=== PATIENT | female | born 2000 | race Caucasian/White ===

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

== ENCOUNTER 2021-09-13 20:56 | Emergency (ER) | payer MEDICARE, OTHER ==
[~2021-09-13] VITALS: Ht 162.6 cm; Wt 98.9 kg
[~2021-09-13 20:56] MED LIST changes: +MACROBID 100 M100 MG PO; +PRAZOSIN HCL1 MG PO; +VITAMIN D250000 UNIT PO
[2021-09-13] MEDS ORDERED: NAPROSYN500 MG PO (21:51)
== END 2021-09-13 22:03 | disposition home or self-care (01) ==
LOC: ED 20:56
DX: M25.642 Stiffness of left hand, not elsewhere classified (principal); J45.909 Unspecified asthma, uncomplicated; Z88.8 Allergy status to other drugs, medicaments and biological substances
CPT/HCPCS: 73130; 96372; 99283-25; J1885

== ENCOUNTER 2021-10-01 02:33 | Emergency (ER) | payer MEDICARE, OTHER ==
[~2021-10-01] VITALS: Ht 162.6 cm; Wt 99.1 kg
[~2021-10-01 02:33] MED LIST changes: +NAPROSYN500 MG PO
--- OUTSIDE RECORDS SUMMARY | 2021-10-01 02:40 | XMS ---
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 - PATIENT DOES SEE DR VIERA AT [facility]. - PATIENT LAST PCP VISIT WAS ON 06/18/18. PCP ADVISED PATIENT TO FOLLOW UP WITH PCP IN REGARDS TO BACK PAIN. E.D. VISIT COUNT (12 MO.) [address] [facility] TOTAL 2 NOTE: Visits indicate total known visits. ED/UCC VISIT TRACKING (12 MO.) 10/01/2021 02:33 [facility] TYPE: Emergency COMPLAINT: - RT SIDE HIP PAIN 09/13/2021 20:57 [facility] TYPE: Emergency COMPLAINT: - LEFT HAND PAIN/NON INJ DIAGNOSES: - Stiffness of left hand, not elsewhere classified - Allergy status to other drugs, medicaments and biological substances - Pain in left finger(s) - Unspecified asthma, uncomplicated INPATIENT VISIT TRACKING (12 MO.) No inpatient visits to display in this time frame [email or web address]
[2021-10-01] MEDS ORDERED: CELEBREX100 MG PO (04:23)
[2021-10-01] MEDS ORDERED: HYDROCODON-ACE1 EA10 PO (04:23)
== END 2021-10-01 04:46 | disposition home or self-care (01) ==
LOC: ED 02:33
DX: S76.011A Strain of muscle, fascia and tendon of right hip, initial encounter (principal); X58.XXXA Exposure to other specified factors, initial encounter; Z88.8 Allergy status to other drugs, medicaments and biological substances
CPT/HCPCS: 36415; 73700; 80053; 84703; 85025; 86140; A9270; J1170; J1885; J3360

== ENCOUNTER 2022-12-07 21:29 | Emergency (ER) | payer MEDICARE, OTHER ==
[~2022-12-07] VITALS: Ht 162.6 cm; Wt 98.9 kg
--- OUTSIDE RECORDS SUMMARY | ~2022-12-07 | XMS | Continuity of Care Document ---
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 [facility] | 25 | mmol/l | (missing) | | | 22:41 | | | | | + + +-------+ + + + | CO2 (ASA) | 2020-02-19 | [facility] | 25 | mmol/l | (missing) | | | 22:41 | | | | | + + +-------+ + + + | LYMPHOCYTES | 2020-02-19 | [facility] | 27 | % | (missing) | | RELATIVE | 22:41 | | | | | | PERCENT | | | | | | + + +-------+ + + + | LYMPHOCYTES | 2020-02-19 | [facility] | 27 | % | (missing) | | RELATIVE | 22:41 | | | | | | PERCENT | | | | | | + + +-------+ + + + | MEAN | 2020-02-19 | [facility] | 27.2 | pg | (missing) | | CORPUSCULAR | 22:41 | | | | | | HEMOGLOBIN | | | | | | + + +-------+ + + + | MEAN | 2020-02-19 | [facility] | 27.2 | pg | (missing) | | CORPUSCULAR | 22:41 | | | | | | HEMOGLOBIN | | | | | | + + +-------+ + + + | GLOBULIN | 2020-02-19 | [facility] | 3.2 | g/dl | (missing) | | | 22:41 | | | | | + + +-------+ + + + | POTASSIUM | 2020-02-19 | [facility] | 3.5 | mmol/l | (missing) | | (ASA) | 22:41 | | | | | + + +-------+ + + + | POTASSIUM | 2020-02-19 | [facility] | 3.5 | mmol/l | (missing) | | (ASA) | 22:41 | | | | | + + +-------+ + + + | PLATELETS | 2020-02-19 | [facility] | 318 | | (missing) | | | 22:41 | | | 10*3/microli | | | | | | | ter | | + + +-------+ + + + | PLATELETS | 2020-02-19 | [facility] | 318 | | (missing) | | | 22:41 | | | 10*3/microli | | | | | | | ter | | + + +-------+ + + + | MEAN | 2020-02-19 | [facility] | 33.4 | g/dl | (missing) | | CORPUSCULAR | 22:41 | | | | | | HEMOGLOBIN | | | | | | | CONC | | | | | | + + +-------+ + + + | MEAN | 2020-02-19 | [facility] | 33.4 | g/dl | (missing) | | CORPUSCULAR | 22:41 | | | | | | HEMOGLOBIN | | | | | | | CONC | | | | | | + + +-------+ + + + | HEMATOCRIT | 2020-02-19 | [facility] | 35.1 | % | (missing) | | | 22:41 | | | | | + + +-------+ + + + | HEMATOCRIT | 2020-02-19 | [facility] | 35.1 | % | (missing) | | | 22:41 | | | | | + + +-------+ + + + | ALBUMIN | 2020-02-19 | [facility] | 4.0 | g/dl | (missing) | | | 22:41 | | | | | + + +-------+ + + + | ALBUMIN | 2020-02-19 | [facility] | 4.0 | g/dl | (missing) | | | 22:41 | | | | | + + +-------+ + + + | RED BLOOD | 2020-02-19 | [facility] | 4.30 | | (missing) | | CELL COUNT | 22:41 | | | 10*6/microli | | | | | | | ter | | + + +-------+ + + + | RED BLOOD | 2020-02-19 | [facility] | 4.30 | | (missing) | | CELL COUNT | 22:41 | | | 10*6/microli | | | | | | | ter | | + + +-------+ + + + | NEUTROPHILS | 2020-02-19 | [facility] | 4.8 | | (missing) | | ABSOLUTE | 22:41 | | | 10*3/microli | | | COUNT | | | | ter | | + + +-------+ + + + | NEUTROPHILS | 2020-02-19 | [facility] | 4.8 | | (missing) | | ABSOLUTE | 22:41 | | | 10*3/microli | | | COUNT | | | | ter | | + + +-------+ + + + | NEUTROPHILS | 2020-02-19 | [facility] | 64 | % | (missing) | | RELATIVE | 22:41 | | | | | | PERCENT | | | | | | + + +-------+ + + + | NEUTROPHILS | 2020-02-19 | [facility] | 64 | % | (missing) | | RELATIVE | 22:41 | | | | | | PERCENT | | | | | | + + +-------+ + + + | MONOCYTES | 2020-02-19 | [facility] | 7 | % | (missing) | | RELATIVE | 22:41 | | | | | | PERCENT | | | | | | + + +-------+ + + + | MONOCYTES | 2020-02-19 | [facility] | 7 | % | (missing) | | RELATIVE | 22:41 | | | | | | PERCENT | | | | | | + + +-------+ + + + | PROTEIN | 2020-02-19 | [facility] | 7.2 | g/dl | (missing) | | TOTAL | 22:41 | | | | | + + +-------+ + + + | PROTEIN | 2020-02-19 | [facility] | 7.2 | g/dl | (missing) | | TOTAL | 22:41 | | | | | + + +-------+ + + + | MEAN | 2020-02-19 | [facility] | 7.4 | fl | (missing) | | PLATELET | 22:41 | | | | | | VOLUME | | | | | | + + +-------+ + + + | MEAN | 2020-02-19 | [facility] | 7.4 | fl | (missing) | | PLATELET | 22:41 | | | | | | VOLUME | | | | | | + + +-------+ + + + | WHITE BLOOD | 2020-02-19 | [facility] | 7.6 | | (missing) | | CELL COUNT | 22:41 | | | 10*3/microli | | | | | | | ter | | + + +-------+ + + + | WHITE BLOOD | 2020-02-19 | [facility] | 7.6 | | (missing) | | CELL COUNT | 22:41 | | | 10*3/microli | | | | | | | ter | | + + +-------+ + + + | ANION GAP | 2020-02-19 | [facility] | 8 | mmol/l | (missing) | | (ASA) | 22:41 | | | | | + + +-------+ + + + | ANION GAP | 2020-02-19 | [facility] | 8 | mmol/l | (missing) | | (ASA) | 22:41 | | | | | + + +-------+ + + + | CALCIUM | 2020-02-19 | [facility] | 8.9 | mg/dl | (missing) | | | 22:41 | | | | | + + +-------+ + + + | CALCIUM | 2020-02-19 | [facility] | 8.9 | mg/dl | (missing) | | | 22:41 | | | | | + + +-------+ + + + | MEAN | 2020-02-19 | [facility] | 81.6 | fl | (missing) | | CORPUSCULAR | 22:41 | | | | | | VOLUME | | | | | | + + +-------+ + + + | MEAN | 2020-02-19 | [facility] | 81.6 | fl | (missing) | | CORPUSCULAR | 22:41 | | | | | | VOLUME | | | | | | + + +-------+ + + + | | 2020-02-19 | [facility] | Automated | (missing) | (missing) | | DIFFERENTIAL | 22:41 | | Differential | | | | TYPE | | | | | | + + +-------+ + + + | HCG | 2020-02-19 | [facility] | Negative | (missing) | (missing) | | QUALITATIVE | 22:41 | | | | | + + +-------+ + + + | HCG | 2020-02-19 | [facility] | Negative | (missing) | (missing) | | QUALITATIVE | 22:41 | | | | | + + +-------+ + + + | SARS-COV-2 | 2020-02-19 | [facility] | Presumptive | (missing) | (missing) | | (COVID-19) | 22:41 | | Negative | | | | BY NAAT | | | | | | | (ASA) | | | | | | + + +-------+ + + + | SARS-COV-2 | 2020-02-19 | [facility] | Presumptive | (missing) | (missing) | | (COVID-19) | 22:41 | | Negative | | | | BY NAAT | | | | | | | (ASA) | | | | | | + + +-------+ + + + | SO COVID 19 | 2020-02-19 | [facility] | [facility], | (missing) | (missing) | | RESULTING | 22:41 | | [address] | | | | AGENCY | | | [place], | | | | | | | [place] | | | | | | | [address] | | | + + +-------+ + + + + + | Result panel 4 | + + + + +-------+--------+ + + | THYROID | 2020-02-19 | [facility] | 2.17 | uiu/ml | (missing) | | STIMULATING | 23:15 | | | | | | HORMONE | | | | | | + + +-------+--------+ + + | THYROID | 2020-02-19 | [facility] | 2.17 | uiu/ml | (missing) | | STIMULATING | 23:15 | | | | | | HORMONE | | | | | | + + +-------+--------+ + + + + | Result panel 5 | + + + + +-------+ + + + | TREPONEMA | 2020-02-29 | [facility] | <0.1 | iv | (missing) | | INDEX VALUE | 09:00 | | | | | + + +-------+ + + + | HEPATITIS B | 2020-02-29 | [facility] | Immune | (missing) | (missing) | | SURFACE | 09:00 | | | | | | ANTIBODY | | | | | | | INTERPRETATI | | | | | | | ON | | | | | | + + +-------+ + + + | HEPATITIS B | 2020-02-29 | [facility] | Immune | (missing) | (missing) | | SURFACE | 09:00 | | | | | | ANTIBODY | | | | | | | INTERPRETATI | | | | | | | ON | | | | | | + + +-------+ + + + | HEPATITIS B | 2020-02-29 | [facility] | Negative | (missing) | (missing) | | CORE IGM | 09:00 | | | | | | ANTIBODY | | | | | | | INTERPRETATI | | | | | | | ON | | | | | | + + +-------+ + + + | HEPATITIS B | 2020-02-29 | [facility] | Negative | (missing) | (missing) | | SURFACE | 09:00 | | | | | | ANTIGEN | | | | | | | INTERPRETATI | | | | | | | ON | | | | | | + + +-------+ + + + | SO HERPES | 2020-02-29 | [facility] | Negative | (missing) | (missing) | | SIMPLEX | 09:00 | | | | | | VIRUS 1 IGG | | | | | | + + +-------+ + + + | TREPONEMA | 2020-02-29 | [facility] | Negative | (missing) | (missing) | | ANTIBODY | 09:00 | | | | | + + +-------+ + + + | HEPATITIS A | 2020-02-29 | [facility] | Negative | (missing) | (missing) | | IGM | 09:00 | | | | | | ANTIBODY | | | | | | | INTERPRETATI | | | | | | | ON | | | | | | + + +-------+ + + + | HEPATITIS C | 2020-02-29 | [facility] | Negative | (missing) | (missing) | | ANTIBODY | 09:00 | | | | | | INTERPRETATI | | | | | | | ON | | | | | | + + +-------+ + + + | HEPATITIS B | 2020-02-29 | [facility] | Negative | (missing) | (missing) | | CORE IGM | 09:00 | | | | | | ANTIBODY | | | | | | | INTERPRETATI | | | | | | | ON | | | | | | + + +-------+ + + + | SO HERPES | 2020-02-29 | [facility] | Negative | (missing) | (missing) | | SIMPLEX | 09:00 | | | | | | VIRUS 2 IGG | | | | | | + + +-------+ + + + | SO HERPES | 2020-02-29 | [facility] | Negative | (missing) | (missing) | | SIMPLEX | 09:00 | | | | | | VIRUS 1 IGG | | | | | | + + +-------+ + + + | HEPATITIS B | 2020-02-29 | [facility] | Negative | (missing) | (missing) | | SURFACE | 09:00 | | | | | | ANTIGEN | | | | | | | INTERPRETATI | | | | | | | ON | | | | | | + + +-------+ + + + | HEPATITIS C | 2020-02-29 | [facility] | Negative | (missing) | (missing) | | ANTIBODY | 09:00 | | | | | | INTERPRETATI | | | | | | | ON | | | | | | + + +-------+ + + + | HEPATITIS A | 2020-02-29 | [facility] | Negative | (missing) | (missing) | | IGM | 09:00 | | | | | | ANTIBODY | | | | | | | INTERPRETATI | | | | | | | ON | | | | | | + + +-------+ + + + | TREPONEMA | 2020-02-29 | [facility] | Negative | (missing) | (missing) | | ANTIBODY | 09:00 | | | | | + + +-------+ + + + | SO HERPES | 2020-02-29 | [facility] | Negative | (missing) | (missing) | | SIMPLEX | 09:00 | | | | | | VIRUS 2 IGG | | | | | | + + +-------+ + + + | HIV1/HIV2 | 2020-02-29 | [facility] | Non | (missing) | (missing) | | ANTIBODY/ANT | 09:00 | | Reactive | | | | IGEN SCREEN | | | | | | + + +-------+ + + + | HIV1/HIV2 | 2020-02-29 | [facility] | Non | (missing) | (missing) | | ANTIBODY/ANT | 09:00 | | Reactive | | | | IGEN SCREEN | | | | | | + + +-------+ + + + + + | Result panel 6 | + + + + +-------+ + + + | SARS-COV-2 | 2020-04-03 | [facility] | Detected | (missing) | (missing) | | (COVID-19) | 22:34 | | | | | | BY NAAT | | | | | | | (ASA) | | | | | | + + +-------+ + + + | SARS-COV-2 | 2020-04-03 | [facility] | Detected | (missing) | (missing) | | (COVID-19) | 22:34 | | | | | | BY NAAT | | | | | | | (ASA) | | | | | | + + +-------+ + + + | SO COVID 19 | 2020-04-03 | [facility] | [facility], | (missing) | (missing) | | RESULTING | 22:34 | | [address] | | | | AGENCY | | | [place], | | | | | | | [place], | | | | | | | [place] [address] | | | + + +-------+ + + + + + | Result panel 7 | + + + + +-------+------+---------+ + | SO VITAMIN | 2020-05-08 | [facility] | 68 | pg/ml | (missing) | | D | 17:08:13 | | | | | | 1,25-DIHYDRO | | | | | | | XY | | | | | | + + +-------+------+---------+ + | SO VITAMIN | 2020-05-08 | [facility] | 68 | pg/ml | (missing) | | D | 17:08:13 | | | | | | 1,25-DIHYDRO | | | | | | | XY | | | | | | + + +-------+------+---------+ + + + | Result panel 8 | + + + + +-------+-------+---------+ + | ESTIMATED | 2020-05-08 | [facility] | 126 | mg/dl | (missing) | | AVERAGE | 17:08:14 | | | | | | GLUCOSE | | | | | | + + +-------+-------+---------+ + | | 2020-05-08 | [facility] | 6.0 | % | (missing) | | GLYCOHEMOGLO | 17:08:14 | | | | | | BIN (A1C) | | | | | | + + +-------+-------+---------+ + | | 2020-05-08 | [facility] | 6.0 | % | (missing) | | GLYCOHEMOGLO | 17:08:14 | | | | | | BIN (A1C) | | | | | | + + +-------+-------+---------+ + + + | Result panel 9 | + + + + +-------+ + + + | | 2020-08-03 | [facility] | (missing) | (missing) | (missing) | | (unavailable | 19:11:14 | | | | | | ) | | | | | | + + +-------+ + + + | | 2020-08-03 | [facility] | . | (missing) | (missing) | | (unavailable | 19:11:14 | | | | | | ) | | | | | | + + +-------+ + + + | | 2020-08-03 | [facility] | 1. No | (missing) | (missing) | | (unavailable | 19:11:14 | | suspicious | | | | ) | | | right knee | | | | | | | x-ray | | | | | | | findings. | | | + + +-------+ + + + | | 2020-08-03 | [facility] | ADDITIONAL | (missing) | (missing) | | (unavailable | 19:11:14 | | CLINICAL | | | | ) | | | HISTORY: | | | | | | | None. | | | + + +-------+ + + + | | 2020-08-03 | [facility] | COMPARISON: | (missing) | (missing) | | (unavailable | 19:11:14 | | None | | | | ) | | | | | | + + +-------+ + + + | | 2020-08-03 | [facility] | | (missing) | (missing) | | (unavailable | 19:11:14 | | Electronical | | | | ) | | | ly Signed | | | | | | | by: Jessee Underwood | | | | | | | MD Camila on | | | | | | | 08/03/2020 | | | | | | | 7:14 PM | | | + + +-------+ + + + | | 2020-08-03 | [facility] | FINDINGS: | (missing) | (missing) | | (unavailable | 19:11:14 | | There is no | | | | ) | | | fracture or | | | | | | | subluxation. | | | | | | | No | | | | | | | periosteal | | | | | | | reaction is | | | + + +-------+ + + + | | 2020-08-03 | [facility] | IMPRESSION: | (missing) | (missing) | | (unavailable | 19:11:14 | | | | | | ) | | | | | | + + +-------+ + + + | | 2020-08-03 | [facility] | PROVIDED | (missing) | (missing) | | (unavailable | 19:11:14 | | CLINICAL | | | | ) | | | INDICATIONS: | | | | | | | right knee | | | | | | | painPain in | | | | | | | right knee | | | + + +-------+ + + + | | 2020-08-03 | [facility] | TECHNIQUE: | (missing) | (missing) | | (unavailable | 19:11:14 | | Multiple | | | | ) | | | x-rays of | | | | | | | the right | | | | | | | knee | | | | | | | obtained. | | | + + +-------+ + + + | | 2020-08-03 | [facility] | XR KNEE | (missing) | (missing) | | (unavailable | 19:11:14 | | RIGHT AP | | | | ) | | | LATERAL AND | | | | | | | AXIAL | | | | | | | 08/03/2020 | | | | | | | 7:11 PM | | | + + +-------+ + + + | | 2020-08-03 | [facility] | present. | (missing) | (missing) | | (unavailable | 19:11:14 | | The soft | | | | ) | | | tissues are | | | | | | | large. | | | + + +-------+ + + + + + | Result panel 10 | + + + + + +-------+ + + | | 2021-10-01 | [facility] | 9.0 | (missing) | (missing) | | (unavailable | 02:52 | [facility] | | | | + + + +-------+ + + + + | Result panel 11 | + + + + + +--------+ + + | | 2021-10-01 | [facility] | 4.20 | (missing) | (missing) | | (unavailable | 02:52 | [facility] | | | | + + + +--------+ + + + + | Result panel 12 | + + + + + +--------+ + + | | 2021-10-01 | [facility] | 12.2 | (missing) | (missing) | | (unavailable | 02:52 | [facility] | | | | + + + +--------+ + + + + | Result panel 13 | + + + + + +--------+ + + | | 2021-10-01 | [facility] | 37.2 | (missing) | (missing) | | (unavailable | 02:52 | [facility] | | | | + + + +--------+ + + + + | Result panel 14 | + + + + + +--------+ + + | | 2021-10-01 | [facility] | 88.5 | (missing) | (missing) | | (unavailable | 02:52 | [facility] | | | | + + + +--------+ + + + + | Result panel 15 | + + + + + +--------+ + + | | 2021-10-01 | [facility] | 29.0 | (missing) | (missing) | | (unavailable | 02:52 | [facility] | | | | + + + +--------+ + + + + | Result panel 16 | + + + + + +--------+ + + | | 2021-10-01 | [facility] | 32.7 | (missing) | (missing) | | (unavailable | 02:52 | [facility] | | | | + + + +--------+ + + + + | Result panel 17 | + + + + + +--------+ + + | | 2021-10-01 | [facility] | 15.2 | (missing) | (missing) | | (unavailable | 02:52 | [facility] | | | | + + + +--------+ + + + + | Result panel 18 | + + + + + +-------+ + + | | 2021-10-01 | [facility] | 341 | (missing) | (missing) | | (unavailable | 02:52 | [facility] | | | | + + + +-------+ + + + + | Result panel 19 | + + + + + +--------+ + + | | 2021-10-01 | [facility] | 62.2 | (missing) | (missing) | | (unavailable | 02:52 | [facility] | | | | + + + +--------+ + + + + | Result panel 20 | + + + + + +--------+ + + | | 2021-10-01 | [facility] | 28.5 | (missing) | (missing) | | (unavailable | 02:52 | [facility] | | | | + + + +--------+ + + + + | Result panel 21 | + + + + + +-------+ + + | | 2021-10-01 | [facility] | 7.7 | (missing) | (missing) | | (unavailable | 02:52 | [facility] | | | | + + + +-------+ + + + + | Result panel 22 | + + + + + +-------+ + + | | 2021-10-01 | [facility] | 0.7 | (missing) | (missing) | | (unavailable | 02:52 | [facility] | | | | + + + +-------+ + + + + | Result panel 23 | + + + + + +-------+ + + | | 2021-10-01 | [facility] | 0.9 | (missing) | (missing) | | (unavailable | 02:52 | [facility] | | | | + + + +-------+ + + + + | Result panel 24 | + + + + + +------+---------+ + | | 2021-10-01 | [facility] | 99 | mg/dL | (missing) | | (unavailable | 02:52 | [facility] | | | | + + + +------+---------+ + + + | Result panel 25 | + + + + + +------+---------+ + | | 2021-10-01 | [facility] | 15 | mg/dL | (missing) | | (unavailable | 02:52 | [facility] | | | | + + + +------+---------+ + + + | Result panel 26 | + + + + + +--------+---------+ + | | 2021-10-01 | [facility] | 0.99 | mg/dL | (missing) | | (unavailable | 02:52 | [facility] | | | | + + + +--------+---------+ + + + | Result panel 27 | + + + + + +------+ + + | | 2021-10-01 | [facility] | 83 | (missing) | (missing) | | (unavailable | 02:52 | [facility] | | | | + + + +------+ + + + + | Result panel 28 | + + + + + +---------+ + + | | 2021-10-01 | [facility] | 15.15 | (missing) | (missing) | | (unavailable | 02:52 | [facility] | | | | + + + +---------+ + + + + | Result panel 29 | + + + + + +-------+ + + | | 2021-10-01 | [facility] | 139 | (missing) | (missing) | | (unavailable | 02:52 | [facility] | | | | + + + +-------+ + + + + | Result panel 30 | + + + + + +-------+ + + | | 2021-10-01 | [facility] | 3.6 | (missing) | (missing) | | (unavailable | 02:52 | [facility] | | | | + + + +-------+ + + + + | Result panel 31 | + + + + + +-------+ + + | | 2021-10-01 | [facility] | 103 | (missing) | (missing) | | (unavailable | 02:52 | [facility] | | | | + + + +-------+ + + + + | Result panel 32 | + + + + + +------+ + + | | 2021-10-01 | [facility] | 23 | (missing) | (missing) | | (unavailable | 02:52 | [facility] | | | | + + + +------+ + + + + | Result panel 33 | + + + + + +--------+ + + | | 2021-10-01 | [facility] | 16.6 | (missing) | (missing) | | (unavailable | 02:52 | [facility] | | | | + + + +--------+ + + + + | Result panel 34 | + + + + + +-------+---------+ + | | 2021-10-01 | [facility] | 8.8 | mg/dL | (missing) | | (unavailable | 02:52 | [facility] | | | | + + + +-------+---------+ + + + | Result panel 35 | + + + + + +-------+ + + | | 2021-10-01 | [facility] | 7.4 | (missing) | (missing) | | (unavailable | 02:52 | [facility] | | | | + + + +-------+ + + + + | Result panel 36 | + + + + + +-------+ + + | | 2021-10-01 | [facility] | 3.5 | (missing) | (missing) | | (unavailable | 02:52 | [facility] | | | | + + + +-------+ + + + + | Result panel 37 | + + + + + +-------+ + + | | 2021-10-01 | [facility] | 3.9 | (missing) | (missing) | | (unavailable | 02:52 | [facility] | | | | + + + +-------+ + + + + | Result panel 38 | + + + + + +--------+ + + | | 2021-10-01 | [facility] | 0.90 | (missing) | (missing) | | (unavailable | 02:52 | [facility] | | | | + + + +--------+ + + + + | Result panel 39 | + + + + + +-------+ + + | | 2021-10-01 | [facility] | 0.3 | (missing) | (missing) | | (unavailable | 02:52 | [facility] | | | | + + + +-------+ + + + + | Result panel 40 | + + + + + +------+ + + | | 2021-10-01 | [facility] | 12 | (missing) | (missing) | | (unavailable | 02:52 | [facility] | | | | + + + +------+ + + + + | Result panel 41 | + + + + + +------+ + + | | 2021-10-01 | [facility] | 20 | (missing) | (missing) | | (unavailable | 02:52 | [facility] | | | | + + + +------+ + + + + | Result panel 42 | + + + + + +------+ + + | | 2021-10-01 | [facility] | 70 | (missing) | (missing) | | (unavailable | 02:52 | [facility] | | | | + + + +------+ + + + + | Result panel 43 | + + + + + + + + + | | 2021-10-01 | [facility] | NEGATIVE | (missing) | (missing) | | (unavailable | 02:52 | [facility] | | | | + + + + + + + + + | Result panel 44 | + + + + + + + + + | | 2021-10-01 | [facility] | <0.2 mg/dL | (missing) | (missing) | | (unavailable | 02:52 | [facility] | | | | + + + + + + + + + | Result panel 45 | + + + + + + + + + | | 2022-09-21 | [facility] | YELLOW | (missing) | (missing) | | (unavailable | 22:35:07 | [facility] | | | | + + + + + + + + + | Result panel 46 | + + + + + +---------+ + + | | 2022-09-21 | [facility] | CLEAR | (missing) | (missing) | | (unavailable | 22:35:07 | [facility] | | | | + + + +---------+ + + + + | Result panel 47 | + + + + + + + + + | | 2022-09-21 | [facility] | NEGATIVE | (missing) | (missing) | | (unavailable | 22:35:07 | [facility] | | | | + + + + + + + + + | Result panel 48 | + + + + + + + + + | | 2022-09-21 | [facility] | NEGATIVE | (missing) | (missing) | | (unavailable | 22:35:07 | [facility] | | | | + + + + + + + + + | Result panel 49 | + + + + + +---------+ + + | | 2022-09-21 | [facility] | TRACE | (missing) | (missing) | | (unavailable | 22:35:07 | [facility] | | | | + + + +---------+ + + + + | Result panel 50 | + + + + + +---------+ + + | | 2022-09-21 | [facility] | 1.025 | (missing) | (missing) | | (unavailable | 22:35:07 | [facility] | | | | + + + +---------+ + + + + | Result panel 51 | + + + + + + + + + | | 2022-09-21 | [facility] | NEGATIVE | (missing) | (missing) | | (unavailable | 22:35:07 | [facility] | | | | + + + + + + + + + | Result panel 52 | + + + + + +-------+ + + | | 2022-09-21 | [facility] | 6.0 | (missing) | (missing) | | (unavailable | 22:35:07 | [facility] | | | | + + + +-------+ + + + + | Result panel 53 | + + + + + + + + + | | 2022-09-21 | [facility] [facility] | NEGATIVE | (missing) | (missing) | | (unavailable | 22:35:07 | [facility] | | | | + + + + + + + + + | Result panel 54 | + + + + + + + + + | | 2022-09-21 | [facility] | NORMAL | (missing) | (missing) | | (unavailable | 22:35:07 | [facility] | | | | + + + + + + + + + | Result panel 55 | + + + + + + + + + | | 2022-09-21 | [facility] | NEGATIVE | (missing) | (missing) | | (unavailable | 22:35:07 [facility] | | | | + + + + + + + + + | Result panel 56 | + + + + + + + + + | | 2022-09-21 | [facility] | NEGATIVE | (missing) | (missing) | | (unavailable | 22:35:07 [facility] | | | | + + + + + + + + + | Result panel 57 | + + + + + +-------+ + + | | 2022-09-21 | [facility] | 9.6 | (missing) | (missing) | | (unavailable | 22:40:07 [facility] | | | | + + + +-------+ + + + + | Result panel 58 | + + + + + +--------+ + + | | 2022-09-21 | [facility] | 73.0 | (missing) | (missing) | | (unavailable | 22:40:07 [facility] | | | + + + +--------+ + + + + | Result panel 59 | + + + + + +--------+ + + | | 2022-09-21 | [facility] | 19.2 | (missing) | (missing) | | (unavailable | 22:40:07 [facility] | | | + + + +--------+ + + + + | Result panel 60 | + + + + + +-------+ + + | | 2022-09-21 | [facility] | 4.1 | (missing) | (missing) | | (unavailable | 22:40:07 [facility] | | | | + + + +-------+ + + + + | Result panel 61 | + + + + + +-------+ + + | | 2022-09-21 | [facility] | 1.6 | (missing) | (missing) | | (unavailable | 22:40:07 [facility] | | | | + + + +-------+ + + + + | Result panel 62 | + + + + + +-------+ + + | | 2022-09-21 | [facility] | 2.1 | (missing) | (missing) | | (unavailable | 22:40:07 [facility] | | | | + + + +-------+ + + + + | Result panel 63 | + + + + + +--------+ + + | | 2022-09-21 | [facility] | 4.39 | (missing) | (missing) | | (unavailable | 22:40:07 [facility] | | | | + + + +--------+ + + + + | Result panel 64 | + + + + + +------+---------+ + | | 2022-09-21 | [facility] | 98 | mg/dL | (missing) | | (unavailable | 22:40:07 [facility] | | | | + + + +------+---------+ + + + | Result panel 65 | + + + + + +-----+---------+ + | | 2022-09-21 | [facility] | 8 | mg/dL | (missing) | | (unavailable | :07 | [facility] | | | | + + + +-----+---------+ + + + | Result panel 66 | + + + + + +--------+---------+ + | | 2022-09-21 | [facility] | 0.81 | mg/dL | (missing) | | (unavailable | 22:40:07 [facility] | | | | + + + +--------+---------+ + + + | Result panel 67 | + + + + + +--------+ + + | | 2022-09-21 | [facility] | 13.0 | (missing) | (missing) | | (unavailable | 22:40:07 [facility] | | | | + + + +--------+ + + + + | Result panel 68 | + + + + + +-------+ + + | | 2022-09-21 | [facility] | 105 | (missing) | (missing) | | (unavailable | 22:40:07 [facility] | | | | + + + +-------+ + + + + | Result panel 69 | + + + + + +--------+ + + | | 2022-09-21 | [facility] | 9.87 | (missing) | (missing) | | (unavailable | 22:40:07 [facility] | | | | + + + +--------+ + + + + | Result panel 70 | + + + + + +-------+ + + | | 2022-09-21 | [facility] | 137 | (missing) | (missing) | | (unavailable | 22:40:07 [facility] | | | | + + + +-------+ + + + + | Result panel 71 | + + + + + +-------+ + + | | 2022-09-21 | [facility] | 3.6 | (missing) | (missing) | | (unavailable | 22:40:07 [facility] | | | | + + + +-------+ + + + + | Result panel 72 | + + + + + +-------+ + + | | 2022-09-21 | [facility] | 103 | (missing) | (missing) | | (unavailable | 22:40:07 | [facility] | | | | + + + +-------+ + + + + | Result panel 73 | + + + + + +------+ + + | | 2022-09-21 | [facility] | 23 | (missing) | (missing) | | (unavailable | 22:40:07 [facility] | | | | + + + +------+ + + + + | Result panel 74 | + + + + + +--------+ + + | | 2022-09-21 | [facility] | 14.6 | (missing) | (missing) | | (unavailable | 22:40:07 [facility] | | | | + + + +--------+ + + + + | Result panel 75 | + + + + + +-------+---------+ + | | 2022-09-21 | [facility] | 8.5 | mg/dL | (missing) | | (unavailable | 22:40:07 [facility] | | | | + + + +-------+---------+ + + + | Result panel 76 | + + + + + +-------+ + + | | 2022-09-21 | [facility] | 7.6 | (missing) | (missing) | | (unavailable | 22:40:07 [facility] | | | | + + + +-------+ + + + + | Result panel 77 | + + + + + +-------+ + + | | 2022-09-21 | [facility] | 3.7 | (missing) | (missing) | | (unavailable | 22:40:07 [facility] | | | | + + + +-------+ + + + + | Result panel 78 | + + + + + +--------+ + + | | 2022-09-21 | [facility] | 39.9 | (missing) | (missing) | | (unavailable | 22:40:07 [facility] | | | | + + + +--------+ + + + + | Result panel 79 | + + + + + +-------+ + + | | 2022-09-21 | [facility] | 3.9 | (missing) | (missing) | | (unavailable | 22:40:07 [facility] | | | | + + + +-------+ + + + + | Result panel 80 | + + + + + +--------+ + + | | 2022-09-21 | [facility] | 0.95 | (missing) | (missing) | | (unavailable | 22:40:07 [facility] | | | | + + + +--------+ + + + + | Result panel 81 | + + + + + +-------+ + + | | 2022-09-21 | [facility] | 0.4 | (missing) | (missing) | | (unavailable | :40:07 | [facility] | | | | + + + +-------+ + + + + | Result panel 82 | + + + + + +------+ + + | | 2022-09-21 | [facility] | 11 | (missing) | (missing) | | (unavailable | 22:40:07 [facility] | | | | + + + +------+ + + + + | Result panel 83 | + + + + + +------+ + + | | 2022-09-21 | [facility] | 17 | (missing) | (missing) | | (unavailable | 22:40:07 [facility] | | | | + + + +------+ + + + + | Result panel 84 | + + + + + +------+ + + | | 2022-09-21 | [facility] | 78 | (missing) | (missing) | | (unavailable | 22:40:07 [facility] | | | | + + + +------+ + + + + | Result panel 85 | + + + + + +-------+ + + | | 2022-09-21 | [facility] | 283 | (missing) | (missing) | | (unavailable | 22:40:07 | [facility] | | | | + + + +-------+ + + + + | Result panel 86 | + + + + + + + + + | | 2022-09-21 | [facility] | NEGATIVE | (missing) | (missing) | | (unavailable | 22:40:07 [facility] | | | | + + + + + + + + + | Result panel 87 | + + + + + +--------+ + + | | 2022-09-21 | [facility] | 90.8 | (missing) | (missing) | | (unavailable | 22:40:07 [facility] | | | | + + + +--------+ + + + + | Result panel 88 | + + + + + +--------+ + + | | 2022-09-21 | [facility] | 29.5 | (missing) | (missing) | | (unavailable | 22:40:07 [facility] | | | | + + + +--------+ + + + + | Result panel 89 | + + + + + +--------+ + + | | 2022-09-21 | [facility] | 32.5 | (missing) | (missing) | | (unavailable | 22:40:07 [facility] | | | | + + + +--------+ + + + + | Result panel 90 | + + + + + +--------+ + + | | 2022-09-21 | [facility] | 14.3 | (missing) | (missing) | | (unavailable | 22:40:07 | [facility] | | | | + + + +--------+ + + + + | Result panel 91 | + + + + + +-------+ + + | | 2022-09-21 | [facility] | 369 | (missing) | (missing) | | (unavailable | 22:40:07 | [facility] | | | | + + + +-------+ + + + + | Serum or plasma alanine aminotransferase measurement (enzymatic activity/volume) | + + + + + +------+ + + | Serum or | 2022-09-21 | [facility] | 17 | (missing) | (missing) | | plasma | 22:40 | [facility] | | | | | alanine | | [facility] | | | | | aminotransfe | | | | | | | rase | | | | | | | measurement | | | | | | | (enzymatic | | | | | | | activity/vol | | | | | | | ume) | | | | | | + + + +------+ + + + + | Serum or plasma albumin measurement (mass/volume) | + + + + + +-------+ + + | Serum or | 2022-09-21 | [facility] | 3.7 | (missing) | (missing) | | plasma | 22:40 | [facility] | | | | albumin | | [facility] | | | | | measurement | | | | | | | (mass/volume | | | | | | | ) | | | | | | + + + +-------+ + + + + | Serum or plasma albumin/globulin mass ratio | + + + + + +--------+ + + | Serum or | 2022-09-21 | [facility] | 0.95 | (missing) | (missing) | | plasma | 22:40 | [facility] | | | | | albumin/glob | | [facility] | | | | | ulin mass | | | | | | | ratio | | | | | | + + + +--------+ + + + + | Serum or plasma calcium measurement (mass/volume) | + + + + + +-------+ + + | Serum or | 2022-09-21 | [facility] | 8.5 | (missing) | (missing) | | plasma | 22:40 | [facility] | | | | | calcium | | [facility] | | | | | measurement | | | | | | | (mass/volume | | | | | | | ) | | | | | | + + + +-------+ + + + + | Serum or plasma anion gap 4 | + + + + + +--------+ + + | Serum or | 2022-09-21 | [facility] | 14.6 | (missing) | (missing) | | plasma anion | 22:40 | [facility] | | | | | gap 4 | | [facility] | | | | + + + +--------+ + + + + | Serum or plasma aspartate aminotransferase measurement (enzymatic activity/volume) | + + + + + +------+ + + | Serum or | 2022-09-21 | [facility] | 11 | (missing) | (missing) | | plasma | 22:40 | [facility] | | | | | aspartate | | [facility] | | | | | aminotransfe | | | | | | | rase | | | | | | | measurement | | | | | | | (enzymatic | | | | | | | activity/vol | | | | | | | ume) | | | | | | + + + +------+ + + + + | Character of Urine | + + + + + +---------+ + + | Character | 2022-09-21 | [facility] | CLEAR | (missing) | (missing) | | of Urine | 22:35 | [facility] | | | | + + + +---------+ + + + + | Serum or plasma total bilirubin measurement (mass/volume) | + + + + + +-------+ + + | Serum or | 2022-09-21 | [facility] | 0.4 | (missing) | (missing) | | plasma total | 22:40 | [facility] | | | | | bilirubin | | [facility] | | | | | measurement | | | | | | | (mass/volume | | | | | | | ) | | | | | | + + + +-------+ + + + + | Serum or plasma carbon dioxide, total measurement (moles/volume) | + + + + + +------+ + + | Serum or | 2022-09-21 | [facility] | 23 | (missing) | (missing) | | plasma | 22:40 | [facility] | | | | | carbon | | [facility] | | | | | dioxide, | | | | | | | total | | | | | | | measurement | | | | | | | (moles/volum | | | | | | | e) | | | | | | + + + +------+ + + + + | Urobilinogen [Mass/volume] in Urine by Test strip | + + + + + + + + + | | 2022-09-21 | [facility] | NORMAL | (missing) | (missing) | | Urobilinogen | 22:35 | [facility] | | | | | [Mass/volume | | | | | | | ] in Urine | | | | | | | by Test | | | | | | | strip | | | | | | + + + + + + + + + | Serum or plasma chloride measurement (moles/volume) | + + + + + +-------+ + + | Serum or | 2022-09-21 | [facility] | 103 | (missing) | (missing) | | plasma | 22:40 | [facility] | | | | | chloride | | [facility] | | | | | measurement | | | | | | | (moles/volum | | | | | | | e) | | | | | | + + + +-------+ + + + + | Automated erythrocyte distribution width | + + + + + +--------+ + + | Automated | 2022-09-21 | [facility] | 14.3 | (missing) | (missing) | | erythrocyte | 22:40 | [facility] | | | | | distribution | | [facility] | | | | | width | | | | | | + + + +--------+ + + + + | Serum or plasma choriogonadotropin ( test) detection | + + + + + + + + + | Serum or | 2022-09-21 | [facility] | NEGATIVE | (missing) | (missing) | | plasma | 22:40 | [facility] | | | | | choriogonado | | [facility] | | | | | tropin | | | | | | | ( | | | | | | | test) | | | | | | | detection | | | | | | + + + + + + + + + | Serum or plasma creatinine measurement (mass/volume) | + + + + + +--------+ + + | Serum or | 2022-09-21 | [facility] | 0.81 | (missing) | (missing) | | plasma | 22:40 | [facility] | | | | | creatinine | | [facility] | | | | | measurement | | | | | | | (mass/volume | | | | | | | ) | | | | | | + + + +--------+ + + + + | Serum globulin measurement (mass/volume) | + + + + + +-------+ + + | Serum | 2022-09-21 | [facility] | 3.9 | (missing) | (missing) | | globulin | 22:40 | [facility] | | | | | measurement | | [facility] | | | | | (mass/volume | | | | | | | ) | | | | | | + + + +-------+ + + + + | Serum or plasma glucose measurement (mass/volume) | + + + + + +------+ + + | Serum or | 2022-09-21 | [facility] | 98 | (missing) | (missing) | | plasma | 22:40 | [facility] | | | | | glucose | | [facility] | | | | | measurement | | | | | | | (mass/volume | | | | | | | ) | | | | | | + + + +------+ + + + + | Urine ketones detection by test strip | + + + + + +---------+ + + | Urine | 2022-09-21 | [facility] | TRACE | (missing) | (missing) | | ketones | 22:35 | [facility] | | | | | detection by | | Hospital | | | | | test strip | | | | | | + + + +---------+ + + + + | Glucose [Presence] in Urine by Test strip | + + + + + + + + + | Glucose | 2022-09-21 | [facility] | NEGATIVE | (missing) | (missing) | | [Presence] | 22:35 | [facility] | | | | | in Urine by | | Hospital | | | | | Test strip | | | | | | + + + + + + + + + | Serum or plasma potassium measurement (moles/volume) | + + + + + +-------+ + + | Serum or | 2022-09-21 | [facility] | 3.6 | (missing) | (missing) | | plasma | 22:40 | [facility] | | | | | potassium | | [facility] | | | | | measurement | | | | | | | (moles/volum | | | | | | | e) | | | | | | + + + +-------+ + + + + | Serum or plasma protein measurement (mass/volume) | + + + + + +-------+ + + | Serum or | 2022-09-21 | [facility] | 7.6 | (missing) | (missing) | | plasma | 22:40 | [facility] | | | | | protein | | [facility] | | | | | measurement | | | | | | | (mass/volume | | | | | | | ) | | | | | | + + + +-------+ + + + + | Serum or plasma sodium measurement (moles/volume) | + + + + + +-------+ + + | Serum or | 2022-09-21 | [facility] | 137 | (missing) | (missing) | | plasma | 22:40 | [facility] | | | | | sodium | | [facility] | | | | | measurement | | | | | | | (moles/volum | | | | | | | e) | | | | | | + + + +-------+ + + + + | Serum or plasma lipase measurement (enzymatic activity/volume) | + + + + + +-------+ + + | Serum or | 2022-09-21 | [facility] | 283 | (missing) | (missing) | | plasma | 22:40 | [facility] | | | | | lipase | | [facility] | | | | | measurement | | | | | | | (enzymatic | | | | | | | activity/vol | | | | | | | ume) | | | | | | + + + +-------+ + + + + | Serum or plasma urea nitrogen measurement (mass/volume) | + + + + + +-----+ + + | Serum or | 2022-09-21 | [facility] | 8 | (missing) | (missing) | | plasma urea | 22:40 | [facility] | | | | | nitrogen | | [facility] | | | | | measurement | | | | | | | (mass/volume | | | | | | | ) | | | | | | + + + +-----+ + + + + | Serum or plasma urea nitrogen/creatinine mass ratio | + + + + + +--------+ + + | Serum or | 2022-09-21 | [facility] | 9.87 | (missing) | (missing) | | plasma urea | 22:40 | [facility] | | | | | nitrogen/cre | | [facility] | | | | | atinine mass | | | | | | | ratio | | | | | | + + + +--------+ + + + + | Color of Urine by Auto | + + + + + + + + + | Color of | 2022-09-21 | [facility] | YELLOW | (missing) | (missing) | | Urine by | 22:35 | [facility] | | | | | Auto | | [facility] | | | | + + + + + + + + + | Urine total bilirubin detection by test strip | + + + + + + + + + | Urine total | 2022-09-21 | [facility] | NEGATIVE | (missing) | (missing) | | bilirubin | 22:35 | [facility] | | | | | detection by | | [facility] | | | | | test strip | | | | | | + + + + + + + + + | Urine hemoglobin detection by test strip | + + + + + + + + + | Urine | 2022-09-21 | [facility] | NEGATIVE | (missing) | (missing) | | hemoglobin | 22:35 | [facility] | | | | | detection by | | [facility] | | | | | test strip | | | | | | + + + + + + + + + | Urine leukocyte esterase detection by dipstick | + + + + + + + + + | Urine | 2022-09-21 | [facility] | NEGATIVE | (missing) | (missing) | | leukocyte | 22:35 | [facility] | | | | | esterase | | [facility] | | | | | detection by | | | | | | | dipstick | | | | | | + + + + + + + + + | Urine nitrite detection by test strip | + + + + + + + + + | Urine | 2022-09-21 | [facility] | NEGATIVE | (missing) | (missing) | | nitrite | 22:35 | [facility] | | | | | detection by | | [facility] | | | | | test strip | | | | | | + + + + + + + + + | Urine pH measurement by test strip | + + + + + +-------+ + + | Urine pH | 2022-09-21 | [facility] | 6.0 | (missing) | (missing) | | measurement | 22:35 | [facility] | | | | | by test | | [facility] | | | | | strip | | | | | | + + + +-------+ + + + + | Protein urine test strip | + + + + + + + + + | Protein | 2022-09-21 | [facility] | NEGATIVE | (missing) | (missing) | | urine test | 22:35 | [facility] | | | | | strip | | [facility] | | | | + + + + + + + + + | Specific gravity ur dipstick | + + + + + +---------+ + + | Specific | 2022-09-21 | [facility] | 1.025 | (missing) | (missing) | | gravity ur | 22:35 | [facility] | | | | | dipstick | | [facility] | | | | + + + +---------+ + + + + | Automated blood monocyte count as percentage of total leukocytes | + + + + + +-------+ + + | Automated | 2022-09-21 | [facility] | 4.1 | (missing) | (missing) | | blood | 22:40 | [facility] | | | | | monocyte | | [facility] | | | | | count as | | | | | | | percentage | | | | | | | of total | | | | | | | leukocytes | | | | | | + + + +-------+ + + + + | Blood leukocytes automated count (number/volume) | + + + + + +-------+ + + | Blood | 2022-09-21 | [facility] | 9.6 | (missing) | (missing) | | leukocytes | 22:40 | [facility] | | | | | automated | | [facility] | | | | | count | | | | | | | (number/volu | | | | | | | me) | | | | | | + + + +-------+ + + + + | Serum or plasma alkaline phosphatase measurement (enzymatic activity/volume) | + + + + + +------+ + + | Serum or | 2022-09-21 | [facility] | 78 | (missing) | (missing) | | plasma | 22:40 | [facility] | | | | | alkaline | | [facility] | | | | | phosphatase | | | | | | | measurement | | | | | | | (enzymatic | | | | | | | activity/vol | | | | | | | ume) | | | | | | + + + +------+ + + + + | Automated blood basophil count as percentage of total leukocytes | + + + + + +-------+ + + | Automated | 2022-09-21 | [facility] | 2.1 | (missing) | (missing) | | blood | 22:40 | [facility] | | | | | basophil | | [facility] | | | | | count as | | | | | | | percentage | | | | | | | of total | | | | | | | leukocytes | | | | | | + + + +-------+ + + + + | Automated blood eosinophil count as percentage of total leukocytes | + + + + + +-------+ + + | Automated | 2022-09-21 | [facility] | 1.6 | (missing) | (missing) | | blood | 22:40 | [facility] | | | | | eosinophil | | [facility] | | | | | count as | | | | | | | percentage | | | | | | | of total | | | | | | | leukocytes | | | | | | + + + +-------+ + + + + | Blood hemoglobin measurement (mass/volume) | + + + + + +--------+ + + | Blood | 2022-09-21 | [facility] | 13.0 | (missing) | (missing) | | hemoglobin | 22:40 | [facility] | | | | | measurement | | [facility] | | | | | (mass/volume | | | | | | | ) | | | | | | + + + +--------+ + + + + | Automated blood hematocrit | + + + + + +--------+ + + | Automated | 2022-09-21 | [facility] | 39.9 | (missing) | (missing) | | blood | 22:40 | [facility] | | | | hematocrit | | [facility] | | | | + + + +--------+ + + + + | Automated blood lymphocyte count as percentage ot total leukocytes | + + + + + +--------+ + + | Automated | 2022-09-21 | [facility] | 19.2 | (missing) | (missing) | | blood | 22:40 | [facility] | | | | | lymphocyte | | [facility] | | | | | count as | | | | | | | percentage | | | | | | | ot total | | | | | | | leukocytes | | | | | | + + + +--------+ + + + + | Automated blood neutrophil count as percentage of total leukocytes | + + + + + +--------+ + + | Automated | 2022-09-21 | [facility] | 73.0 | (missing) | (missing) | | blood | 22:40 | [facility] | | | | | neutrophil | | [facility] | | | | | count as | | | | | | | percentage | | | | | | | of total | | | | | | | leukocytes | | | | | | + + + +--------+ + + + + | Automated blood platelet count (count/volume) | + + + + + +-------+ + + | Automated | 2022-09-21 | [facility] | 369 | (missing) | (missing) | | blood | 22:40 | [facility] | | | | | platelet | | [facility] | | | | | count | | | | | | | (count/volum | | | | | | | e) | | | | | | + + + +-------+ + + + + | Automated erythrocyte mean corpuscular hemoglobin (mass per erythrocyte) | + + + + + +--------+ + + | Automated | 2022-09-21 | [facility] | 29.5 | (missing) | (missing) | | erythrocyte | 22:40 | [facility] | | | | | mean | | [facility] | | | | | corpuscular | | | | | | | hemoglobin | | | | | | | (mass per | | | | | | | erythrocyte) | | | | | | | | | | | | | + + + +--------+ + + + + | Automated erythrocyte mean corpuscular hemoglobin concentration measurement | | (mass/volume) | + + + + + +--------+ + + | Automated | 2022-09-21 | [facility] | 32.5 | (missing) | (missing) | | erythrocyte | 22:40 | [facility] | | | | | mean | | [facility] | | | | | corpuscular | | | | | | | hemoglobin | | | | | | | concentratio | | | | | | | n | | | | | | | measurement | | | | | | | (mass/volume | | | | | | | ) | | | | | | + + + +--------+ + + + + | Automated erythrocyte mean corpuscular volume | + + + + + +--------+ + + | Automated | 2022-09-21 | [facility] | 90.8 | (missing) | (missing) | | erythrocyte | 22:40 | [facility] | | | | | mean | | [facility] | | | | | corpuscular | | | | | | | volume | | | | | | + + + +--------+ + + + + | Blood erythrocytes automated count (number/volume) | + + + + + +--------+ + + | Blood | 2022-09-21 | [facility] | 4.39 | (missing) | (missing) | | erythrocytes | 22:40 | [facility] | | | | | automated | | [facility] | | | | | count | | | | | | | (number/volu | | | | | | | me) | | | | | | + + + +--------+ + + + + | Glomerular filtration rate/1.73 sq M.predicted [Volume Rate/Area] inSerum, Plasma or | | Blood by Creatinine-based formula (CKD-EPI 2020) | + + + + + +-------+ + + | Glomerular | 2022-09-21 | [facility] | 105 | (missing) | (missing) | | filtration | 22:40 | [facility] | | | | | rate/1.73 sq | | Hospital | | | | | M.predicted | | | | | | | [Volume | | | | | | | Rate/Area] | | | | | | | inSerum, | | | | | | | Plasma or | | | | | | | Blood by | | | | | | | Creatinine-b | | | | | | | ased formula | | | | | | | (CKD-EPI | | | | | | | 2020) | | | | | | + + + +-------+ + + Social History + + + + | date | description | facility | + + + + | 2022-04-09 00:00 | Never smoker | [facility] | + + + + | 2022-09-21 00:00 | Never smoker | [facility] | + + + + Vital Signs + + + +---------+ | date | measurement | value | units | + + + +---------+ | 2021-09-13 00:00 | BMI | 37.4 | kg/m2 | + + + +---------+ | 2021-09-13 00:00 | BP_diastolic | 92 | mmHg | + + + +---------+ | 2021-09-13 00:00 | BP_systolic | 108 | mmHg | + + + +---------+ | 2021-09-13 00:00 | heart_rate | 65 | /min | + + + +---------+ | 2021-09-13 00:00 | height_metric | 162.56 | cm | + + + +---------+ | 2021-09-13 00:00 | height_standard | 64 | in | + + + +---------+ | 2021-09-13 00:00 | o2_saturation | 100 | % | + + + +---------+ | 2021-09-13 00:00 | respiration_rate | 16 | /min | + + + +---------+ | 2021-09-13 00:00 | temperature_metric | 37 | C | | | | | | + + + +---------+ | 2021-09-13 00:00 | | 98.6 | F | | | temperature_standar | | | | | d | | | + + + +---------+ | 2021-09-13 00:00 | weight_metric | 98.88 | kg | + + + +---------+ | 2021-09-13 00:00 | weight_standard | 218 | lb | + + + +---------+ | 2021-10-01 00:00 | BMI | 37.5 | kg/m2 | + + + +---------+ | 2021-10-01 00:00 | BP_diastolic | 68 | mmHg | + + + +---------+ | 2021-10-01 00:00 | BP_systolic | 106 | mmHg | + + + +---------+ | 2021-10-01 00:00 | heart_rate | 60 | /min | + + + +---------+ | 2021-10-01 00:00 | height_metric | 162.56 | cm | + + + +---------+ | 2021-10-01 00:00 | height_standard | 64 | in | + + + +---------+ | 2021-10-01 00:00 | o2_saturation | 98 | % | + + + +---------+ | 2021-10-01 00:00 | respiration_rate | 16 | /min | + + + +---------+ | 2021-10-01 00:00 | temperature_metric | 36.72 | C | | | | | | + + + +---------+ | 2021-10-01 00:00 | | 98.1 | F | | | temperature_standar | | | | | d | | | + + + +---------+ | 2021-10-01 00:00 | weight_metric | 99.14 | kg | + + + +---------+ | 2021-10-01 00:00 | weight_standard | 218.56 | lb | + + + +---------+ | 2021-10-01 00:00 | weight_standard | 218.57 | lb | + + + +---------+ | 2022-04-09 00:00 | BMI | 37.5 | kg/m2 | + + + +---------+ | 2022-04-09 00:00 | BP_diastolic | 73 | mmHg | + + + +---------+ | 2022-04-09 00:00 | BP_systolic | 124 | mmHg | + + + +---------+ | 2022-04-09 00:00 | heart_rate | 82 | /min | + + + +---------+ | 2022-04-09 00:00 | height_metric | 162.56 | cm | + + + +---------+ | 2022-04-09 00:00 | height_standard | 64 | in | + + + +---------+ | 2022-04-09 00:00 | o2_saturation | 100 | % | + + + +---------+ | 2022-04-09 00:00 | respiration_rate | 16 | /min | + + + +---------+ | 2022-04-09 00:00 | temperature_metric | 37.06 | C | | | | | | + + + +---------+ | 2022-04-09 00:00 | | 98.7 | F | | | temperature_standar | | | | | d | | | + + + +---------+ | 2022-04-09 00:00 | weight_metric | 99.14 | kg | + + + +---------+ | 2022-04-09 00:00 | weight_standard | 218.56 | lb | + + + +---------+ | 2022-04-09 00:00 | weight_standard | 218.57 | lb | + + + +---------+ | 2022-09-21 00:00 | BMI | 37.5 | kg/m2 | + + + +---------+ | 2022-09-21 00:00 | BP_diastolic | 57 | mmHg | + + + +---------+ | 2022-09-21 00:00 | BP_systolic | 98 | mmHg | + + + +---------+ | 2022-09-21 00:00 | heart_rate | 70 | /min | + + + +---------+ | 2022-09-21 00:00 | height_metric | 162.56 | cm | + + + +---------+ | 2022-09-21 00:00 | height_standard | 64 | in | + + + +---------+ | 2022-09-21 00:00 | o2_saturation | 99 | % | + + + +---------+ | 2022-09-21 00:00 | respiration_rate | 16 | /min | + + + +---------+ | 2022-09-21 00:00 | temperature_metric | 36.89 | C | | | | | | + + + +---------+ | 2022-09-21 00:00 | | 98.4 | F | | | temperature_standar | | | | | d | | | + + + +---------+ | 2022-09-21 00:00 | weight_metric | 99.14 | kg | + + + +---------+ | 2022-09-21 00:00 | weight_standard | 218.56 | lb | + + + +---------+ | 2022-09-21 00:00 | weight_standard | 218.57 | lb | + + + +---------+"
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
[~2022-12-07 21:29] MED LIST changes: +CELEBREX100 MG PO; +HYDROCODON-ACE1 EA10 PO; +PROTONIX40 MG PO
[2022-12-07 22:44] LABS: BASOPHILS 0.3 % (0-2); EOSINOPHILS 1.1 % (0-6); HEMATOCRIT 37.9 % (35.0-50.0); HEMOGLOBIN 12.7 g/dL (12.0-18.0); LYMPHOCYTES 23.2 % (24-44); MCH 30.2 (27-36); MCHC 33.4 g/dl (30-36); MCV 90.4 fl (81-99); MONOCYTES 5.6 % (0-12); NEUTROPHILS 69.8 % (39-80); PLATELET COUNT 252 K/uL (140-440); RDW 13.9 (10.5-15.0)
[2022-12-07 22:59] LABS: BILIRUBIN, URINE NEGATIVE (negative); BLOOD/HGB, URINE NEGATIVE (Negative); KETONE, URINE NEGATIVE (Negative); LEUK ESTERASE, URINE NEGATIVE (negative); NITRITE, URINE NEGATIVE (negative); PH, URINE 8.5 (5-7)
[2022-12-07 23:31] LABS: ALBUMIN/GLOBULIN RATIO 1.08 (1.1-2.4); ANION GAP 13.4 (7-21); BILIRUBIN, TOTAL 0.3 ng/dL (0.2-1.0); BUN/CREATININE RATIO 12.16 (6.0-28.6); CALCIUM 8.9 mg/dL (8.5-10.1); CREATININE, SERUM 0.74 mg/dL (0.55-1.02); POTASSIUM 3.4 mmol/L (3.5-5.1); PROTEIN, TOTAL 7.7 g/dL (6.4-8.2)
[2022-12-07] MEDS ORDERED: LIDODERM1 EACH TOP (23:53)
[2022-12-08 00:07] VITALS: BP 104/62
== END 2022-12-08 00:08 | disposition home or self-care (01) ==
LOC: ED 21:29
PROVIDERS: Internal Medicine
DX: S39.012A Strain of muscle, fascia and tendon of lower back, initial encounter (principal); R10.9 Unspecified abdominal pain; M25.551 Pain in right hip; X58.XXXA Exposure to other specified factors, initial encounter; Z88.8 Allergy status to other drugs, medicaments and biological substances; Z79.899 Other long term (current) drug therapy
CPT/HCPCS: 36415; 73502; 80053; 81003; 84703; 85025; 96374; 96375; 99284-25; J1885

== ENCOUNTER 2023-02-15 13:30 | Emergency (ER) | payer MEDICARE, OTHER ==
[~2023-02-15] VITALS: Ht 162.6 cm; Wt 99.1 kg
[~2023-02-15 13:30] MED LIST changes: +LIDODERM1 EACH TOP
[2023-02-15] MEDS ORDERED: OMEPRAZOLE20 MG (13:47)
[2023-02-15] MEDS ORDERED: VENTOLIN HFA18 GM (13:47)
[2023-02-15] MEDS ORDERED: PROVENTIL HFA6.7 GM (13:48)
[2023-02-15 14:24] LABS: INFLUENZA B NAA NEGATIVE (NEGATIVE); RESPIRATORY SYNCYTIAL VIR NAA NEGATIVE (NEGATIVE)
[2023-02-15] MEDS ORDERED: CYCLOBENZAPRINE10 MG PO (14:34)
[2023-02-15] MEDS ORDERED: BENZONATATE100 MG PO (14:34)
[2023-02-15] MEDS ORDERED: ONDANSETRON ODT8 MG PO (14:34)
[2023-02-15 14:55] VITALS: BP 102/62
== END 2023-02-15 14:58 | disposition home or self-care (01) ==
LOC: ED 13:30
PROVIDERS: Family Medicine
DX: U07.1 COVID-19 (principal); J45.909 Unspecified asthma, uncomplicated; Z88.8 Allergy status to other drugs, medicaments and biological substances
CPT/HCPCS: 71045; 87502; C9803; J1885; J2405; J7121; U0002

== ENCOUNTER 2023-05-30 16:58 | Emergency (ER) | payer MEDICARE, OTHER ==
[~2023-05-30] VITALS: Ht 162.6 cm; Wt 99.1 kg
[~2023-05-30 16:58] MED LIST changes: +BENZONATATE100 MG PO; +CYCLOBENZAPRINE10 MG PO; +OMEPRAZOLE20 MG; +ONDANSETRON ODT8 MG PO; +PROVENTIL HFA6.7 GM; +VENTOLIN HFA18 GM
[2023-05-30 18:12] LABS: BASOPHILS 0.7 % (0-2); EOSINOPHILS 1.8 % (0-6); HEMATOCRIT 40.3 % (35.0-50.0); HEMOGLOBIN 13.8 g/dL (12.0-18.0); LYMPHOCYTES 14.9 % (24-44); MCH 31.2 (27-36); MCHC 34.3 g/dl (30-36); MCV 91.1 fl (81-99); MONOCYTES 7.5 % (0-12); NEUTROPHILS 75.1 % (39-80); PLATELET COUNT 310 K/uL (140-440); RBC 4.42 M/ul (4.3-5.7); RDW 13.8 (10.5-15.0)
[2023-05-30 18:35] LABS: ACETAMINOPHEN 0 ug/mL (10-30); ALBUMIN 3.7 g/dL (3.4-5.0); ALBUMIN/GLOBULIN RATIO 0.84 (1.1-2.4); ALCOHOL, MEDICAL <3 ng/dL (<3); ALKALINE PHOSPHATASE 88 U/L (46-116); ALT (SGPT) 15 U/L (14-59); ANION GAP 15.5 (7-21); AST (SGOT) 13 U/L (15-37); BILIRUBIN, TOTAL 0.3 ng/dL (0.2-1.0); BUN/CREATININE RATIO 11.76 (6.0-28.6); CALCIUM 9.4 mg/dL (8.5-10.1); CARBON DIOXIDE 26 mmol/L (21-32); CHLORIDE 102 mmol/L (98-107); CREATININE, SERUM 0.68 mg/dL (0.55-1.02); GLOMERULAR FILTRATION RATE,EST 126 mL/min (>60); POTASSIUM 3.5 mmol/L (3.5-5.1); PROTEIN, TOTAL 8.1 g/dL (6.4-8.2); TSH, 3RD GENERATION 1.537 uIU/mL (0.358-3.740); UREA NITROGEN 8 mg/dL (7-18)
[2023-05-30 18:56] LABS: BILIRUBIN, URINE NEGATIVE (negative); BLOOD/HGB, URINE NEGATIVE (Negative); KETONE, URINE NEGATIVE (Negative); LEUK ESTERASE, URINE NEGATIVE (negative); NITRITE, URINE NEGATIVE (negative); PH, URINE 6.5 (5-7)
[2023-05-30 19:10] LABS: AMPHETAMINES, URINE NEGATIVE (NEGATIVE); BARBITURATES, URINE NEGATIVE (NEGATIVE); BENZODIAZEPINE, URINE NEGATIVE (NEGATIVE); BUPRENORPHINE, URINE NEGATIVE (NEGATIVE); CANNABINOID, URINE POSITIVE (NEGATIVE); COCAINE, URINE NEGATIVE (NEGATIVE); ECSTASY, URINE NEGATIVE (NEGATIVE); FENTANYL, URINE NEGATIVE (NEGATIVE); METHADONE, URINE NEGATIVE (NEGATIVE); OPIATES, URINE NEGATIVE (NEGATIVE); OXYCODONE, URINE NEGATIVE (NEGATIVE); PHENCYCLIDINE, URINE NEGATIVE (NEGATIVE)
[2023-05-30] MEDS ORDERED: DICLOFENAC SODI50 GM TD (20:47)
[2023-05-30] MEDS ORDERED: TRAZODONE HCL 50 MG TAB PO SCH (21:09)
[2023-05-31] MEDS ORDERED: SIMETHICONE 125 MG TABLET CHEWABLE PO ONE (23:00)
[2023-06-01] MEDS ORDERED: ACETAMINOPHEN 500 MG TAB PO PRN (10:45)
[2023-06-01] MEDS ORDERED: IBUPROFEN 600 MG TAB PO PRN (10:45)
[2023-06-01] MEDS ORDERED: NICOTINE 7 MG/24 HR 1 EA TDSY TD SCH (14:47)
[2023-06-02 13:00] VITALS: BP 104/64
== END 2023-06-02 13:05 | disposition home or self-care (01) ==
LOC: ED 16:58
PROVIDERS: Family Medicine
DX: F32.A Depression, unspecified (principal); J45.909 Unspecified asthma, uncomplicated; Z88.8 Allergy status to other drugs, medicaments and biological substances; Z79.899 Other long term (current) drug therapy; Z63.8 Other specified problems related to primary support group
CPT/HCPCS: 36415; 80053; 80307; 81003; 84443; 84703; 85025; A9270; G0480